=== PATIENT | female | born 1980 | race American Indian/Alaskan Native ===

== ENCOUNTER 2021-12-04 08:03 | Day surgery (SDC) | payer BC ==
--- NOTE | 2021-12-03 20:37 | History and Physical Report ---
History of Present Illness Date of examination: 11/30/21 Date of admission: 12/04/21 Chief complaint: vaginal bleeding History of present illness: Visit Type: Pre-Op CC: no complaints. History of Present Illness: pt presents for pre-op. No c/o. .l................ ....................................................Lizzy Rizzo November 30, 2021 2:17 PM mask,Patient denies fever, cough, shortness of breath and exposure to COVID-19. Pt has menorrhagia and periods 2 times per month and was diagnosed with an endometriam mass in march 2021. She was to have it removed but was not able to do so until this time. [facility]. All risk/benefits/alternatives were d/w pt and questions were addressed and answered. Consents signed and placed on the chart. She states last few periods have continued to be heavy. CBC will be obtained today. She denies any headaches or blurry visioin. 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 of genital herpes: yes Partner hx. of genital herpes: no Hx of STD: HSV II Active Medications (reviewed today): None Current Allergies (reviewed today): No known allergies Past Medical History: Reviewed history from 10/26/2020 and no changes required: negative Past Surgical History: Reviewed history from 10/26/2020 and no changes required: umbilical hernia repair lsc Tubal Ligation (2013) [--[facility]] Risk Factors: Smoked Tobacco Use: Never smoker Smokeless Tobacco Use: Never Passive Smoke Exposure: no HIV High Risk Behavior: no Exercise: no Seatbelt Use: 100 % [[facility]] [Labs In-House] Physical Exam Appearance: well developed, well nourished, no acute distress Other Exams Lungs: no rales, rhonchi, or wheezes Heart: S1, S2, no murmur, rub, or gallop Abdomen: soft, non-tender, no masses, bowel sounds normal Extremities: normal alignment, no joint enlargement, crepitus, masses or tenderness; normal tone and strength Genitourinary Exam Comments: deferred until EUA Past History Past Medical History: no pertinent history Past Surgical History: other (see hpi) 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: other (see hpi) Family/Genetic History: other (see hpi) Medications and Allergies Allergies Allergy/AdvReac Type Severity Reaction Status Date / Time No Known Allergies Allergy Verified 11/23/21 13:31 Home Medications Medication Instructions Recorded Confirmed Last Taken Type No Known Home Medications [No 11/23/21 11/23/21 Unknown History Reported Home Medications] Active Meds: Active Medications Acetaminophen (Acetaminophen 500 Mg Tab) 1,000 mg PO PREOP MATILDA Stop: 12/04/21 23:59 Lactated Ringer's (Lactated Ringers) 1,000 mls @ 100 mls/hr IV DIRECT MATILDA Stop: 12/04/21 23:59 Midazolam HCl (Midazolam 2 Mg/2 Ml Inj) 2 mg IV PREOP NR Stop: 12/04/21 23:59 Scopolamine (Scopolamine Transdermal Patch 72 Hr) 1 each TD PREOP NR Stop: 12/04/21 23:59 Review of Systems All systems: negative - Physical Exam Cardiovascular: Normal S1, Normal S2 Abdomen: Positive: normal appearance, soft. Negative: distention, tenderness, guarding Genitourinary (Female): Positive: other (deferred until EUA) Results All other labs normal. Assessment and Plan - Patient Problems (1) Menometrorrhagia Status: Acute Plan to address problem: -admit for myosure with hysteroscopy -consents signed and placed on the chart -pt does not desires endometrial ablation at this time (2) Endometrial mass Status: Acute Plan to address problem: -admit for myosure with hysteroscopy -consents signed and placed on the chart -pt does not desires endometrial ablation at this time
[~2021-12-04 08:03] MED LIST: ACETAMINOPHEN 500 MG TAB PO SCH; LACTATED RINGERS 1,000 ML IV SCH; MIDAZOLAM 2 MG/2 ML INJ IV NR; SCOPOLAMINE TRANSDERMAL PATCH 72 HR TD NR; ceFAZolin/Water 2 GM/20 ML 2 GM/20 ML SYRINGE IV NR
--- NOTE | 2021-12-04 10:34 | Anesthesia Consultation ---
Anesthesia Consult and Med Hx Date of service: 12/04/21 - Airway Anesthetic Teeth Evaluation: Good ROM Head & Neck: Adequate Mental/Hyoid Distance: Adequate Mallampati Class: Class II Intubation Access Assessment: Probably Good - Pre-Operative Health Status ASA Pre-Surgery Classification: ASA1 Proposed Anesthetic Plan: General - Pulmonary Hx Smoking: No Hx Respiratory Symptoms: No - Cardiovascular System Hx Hypertension: No - Central Nervous System CVA: No - Endocrine Hx Renal Disease: No Hx Liver Disease: No Hx Insulin Dependent Diabetes: No Hx Non-Insulin Dependent Diabetes: No Hx Thyroid Disease: No - Additional Comments Anesthesia Medical History Comments: No hx anesthetic complications.
[2021-12-04] MEDS ORDERED: HYDROmorphone 0.5 MG/0.5 ML INJ IV PRN (10:35)
[2021-12-04] MEDS ORDERED: ONDANSETRON 4 MG/2 ML INJ IV PRN (10:35)
[2021-12-04] MEDS ORDERED: HYDROcodone/ACETAMINOPHEN 5-325 MG TAB PO PRN (10:35)
--- NOTE | 2021-12-04 10:35 | Anesthesia Day of Surgery ---
Anesthesia Day of Surgery - Day of Surgery Patient Examined: Yes Patient H&P Reviewed: Yes Patient is NPO: Yes
[2021-12-04] MEDS ORDERED: propofoL 200 MG/20 ML VIAL IV ONE (10:48)
[2021-12-04] MEDS ORDERED: LIDOCAINE MPF (2%) 20 MG/1 ML VIAL 5 ML ONE (10:48)
[2021-12-04] MEDS ORDERED: fentaNYL 100 MCG/2 ML INJ ONE (10:48)
[2021-12-04] MEDS ORDERED: PHENYLEPHRINE/NS 1,000 MCG/10 ML SYRINGE (OR USE) IV ONE (11:45)
[2021-12-04] MEDS ORDERED: ONDANSETRON 4 MG/2 ML INJ ONE (11:46)
[2021-12-04] MEDS ORDERED: dexAMETHasone 20 MG/5 ML VIAL ONE (11:46)
[2021-12-04] MEDS ORDERED: KETOROLAC 30 MG/1 ML INJ ONE (12:14)
[2021-12-04] MEDS ORDERED: SODIUM CHLORIDE 0.9% IRRIG SOLN 3000 ML IR ONE (12:26)
--- NOTE | 2021-12-04 12:28 | Operative Report ---
Operative Report Operative Report: Date of procedure: 12/04/2021 Pre-operative diagnosis: Menometrorrhagia Endometrial mass Post-operative diagnosis: Same Procedure name(s): Hysteroscopy Myosure Surgeon: Dr. 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 endotracheal anesthesia EBL: minimal Urine output: 85 cc of clear urine out via straight catheterization prior to the procedure Fluids: 800 mL Findings: Thickened endometrial lining. Multiple endometrial masses that appear to be endometrial polyps. Ranging in size from 1 cm to 2 cm Indications: Patient with long history of having 2 periods in the month. Each menstrual period equal and flow. Patient was noted to have endometrial mass on saline infused sonogram. Patient desired removal of mass. All risk benefits and alternatives were discussed with the patient. Consents were signed and placed on the chart. Complications: None Procedure: Patient was taken to the operating room where she was placed under general anesthesia. She was placed in dorsal lithotomy position with legs in Michael stirrups. She was then prepped and draped in sterile fashion. [Bansal catheter was placed at this time]. The anterior lip of the cervix was grasped with a tenaculum and the uterus was sounded to approximately 9 cm. As at this point that the cervix was dilated to allow the passage of a Myosure hysteroscope. Uterine cavity was noted to have an appearance as indicated above. MyoSure was performed to remove all endometrial masses as well as thickened endometrial tissue. Hemostasis was noted to be excellent. There was no evidence of perforation of uterine cavity. Fluid deficit was noted to be 125 mL. Patient was taken to the recovery room awake and in stable condition. Patient was given Ancef prior to the onset of the procedure. All laps and needle counts were correct. Patient tolerated the procedure well.
--- NOTE | 2021-12-04 12:31 | Short Stay Summary ---
Short Stay Documentation Date of service: 12/04/21 - History H&P: dictated - Allergies and Medications Current Medications: Allergies No Known Allergies Allergy (Verified 11/23/21 13:31) Home Medications Medication Instructions Recorded Confirmed Last Taken Type Ibuprofen [Motrin 800 MG tab] 800 mg PO Q8HR PRN #30 tablet 12/04/21 Unknown Rx oxyCODONE /ACETAMINOPHEN [Percocet 1 tab PO Q4HR #5 tab 12/04/21 Unknown Rx 5/325] Active Medications Acetaminophen (Acetaminophen 500 Mg Tab) 1,000 mg PO PREOP MATILDA Stop: 12/04/21 23:59 Last Admin: 12/04/21 10:35 Dose: 1,000 mg Hydrocodone Bitart/Acetaminophen (Hydrocodone/Acetaminophen 5-325 Mg Tab) 2 each PO ONCE PRN PRN Reason: Pain, Moderate (4-6) Stop: 12/04/21 13:00 Hydromorphone HCl (Hydromorphone 0.5 Mg/0.5 Ml Inj) 0.5 mg IV Q10MIN PRN PRN Reason: Pain , Severe (7-10) Stop: 12/04/21 20:00 Lactated Ringer's (Lactated Ringers) 1,000 mls @ 100 mls/hr IV DIRECT MATILDA Stop: 12/04/21 23:59 Last Admin: 12/04/21 11:00 Dose: 100 mls/hr Cefazolin Sodium (Ancef/Sterile Water 2 Gm/20 Ml) 2 gm in 20 mls @ 80 mls/hr IV PREOP NR; Protocol Stop: 12/04/21 21:00 Midazolam HCl (Midazolam 2 Mg/2 Ml Inj) 2 mg IV PREOP NR Stop: 12/04/21 23:59 Last Admin: 12/04/21 11:20 Dose: 2 mg Ondansetron HCl (Ondansetron 4 Mg/2 Ml Inj) 4 mg IV ONCE PRN PRN Reason: Nausea And Vomiting Stop: 12/04/21 13:00 Scopolamine (Scopolamine Transdermal Patch 72 Hr) 1 each TD PREOP NR Stop: 12/04/21 23:59 Last Admin: 12/04/21 10:35 Dose: 1 each - Brief post op/procedure progress note Date of procedure: 12/04/21 Pre-op diagnosis: menometrrhagia; endometrial mass Post-op diagnosis: same Procedure: hystroscopy with myosure removal of endometrial mass Anesthesia: GETA Findings: See operative report Surgeon: MICHEAL CAMPO Estimated blood loss: none Pathology: list (Uterine contents) Specimen disposition: to lab Condition: stable - Hospital course Hospital course: Patient was admitted and underwent above-stated procedure that was not complicated patient will be discharged home once recovery is completed in PACU. Patient has appointment in the office in 1 week. - Disposition Condition at discharge: Good Disposition: 01 HOME / SELF CARE / HOMELESS - Discharge Diagnoses (1) Menometrorrhagia Status: Acute (2) Endometrial mass Status: Acute Short Stay Discharge Plan Activity: no restrictions Weight Bearing Status: Weight Bear as Tolerated Diet: regular Follow up with: PRIMARY CARE,MD [Primary Care Provider] - 7 Days MICHEAL CAMPO MD [Staff Physician] - 7 Days Prescriptions: Ibuprofen [Motrin 800 MG tab] 800 mg PO Q8HR PRN #30 tablet PRN Reason: Pain, Moderate (4-6) oxyCODONE /ACETAMINOPHEN [Percocet 5/325] 1 tab PO Q4HR #5 tab
[2021-12-04 13:07] VITALS: BP 122/64
--- NOTE | 2021-12-04 14:14 | Post Anesthesia Evaluation ---
- Post Anesthesia Evaluation Patient Participated: Yes Airway Patent: Yes Stable Respiratory Function: Yes Nausea/Vomiting: No Temp > 96.8F: Yes Pain Manageable: Yes Adequeate Hydration: Yes Anesthesia Complications: No
== END 2021-12-04 08:04 | disposition home or self-care (01) ==
LOC: OR 08:03 → MERGE 08:03 → OR 08:04 → EDBD 11:45
PROVIDERS: ATTEND Obstetrics & Gynecology
DX: N92.1 Excessive and frequent menstruation with irregular cycle (principal); N85.8 Other specified noninflammatory disorders of uterus; N94.89 Other specified conditions associated with female genital organs and menstrual cycle; G43.909 Migraine, unspecified, not intractable, without status migrainosus; Z79.899 Other long term (current) drug therapy; Z87.440 Personal history of urinary (tract) infections; Z72.89 Other problems related to lifestyle; Z98.890 Other specified postprocedural states
CPT/HCPCS: 58558; 81025; 88307; C1782; J0690; J1100; J1885; J2250; J2370; J2405; J2704; J3010; J7120